=== PATIENT | male | born 1960 | race Caucasian/White ===

== ENCOUNTER 2017-10-28 23:31 | Emergency (ER) | payer BC ==
[2017-10-29] MEDS ORDERED: Lidocaine 2% Viscous Solution 10 ML, Aluminum & Magnesium Hydroxide 20 ML, Donnatal Eli... SSW SCH (00:15)
[2017-10-29 00:53] LABS: CKMB 3.9 ng/mL (0-6.6); Troponin I Less than 0.010 ng/mL (< 0.028)
--- NOTE | 2017-12-02 20:17 | EKG ---
Test Reason : Blood Pressure : / mmHG Vent. Rate : 066 BPM Atrial Rate : 066 BPM P-R Int : 242 ms QRS Dur : 102 ms QT Int : 446 ms P-R-T Axes : 034 023 030 degrees QTc Int : 467 ms Sinus rhythm with 1st degree A-V block Otherwise normal ECG Confirmed by FRANC OLEARY M.D. ([id number]), purchasing expeditor MATHEW [email or web address] ([id number]) on 12/02/2017 8:17:30 PM Referred By: MD MEDRANO Confirmed By:FRANC OLEARY M.D.
== END 2017-10-29 02:00 | disposition home or self-care (01) ==
LOC: ERS 23:31
DX: T18.128A Food in esophagus causing other injury, initial encounter (principal); F17.220 Nicotine dependence, chewing tobacco, uncomplicated
CPT/HCPCS: 36415; 82553; 84484; 93005; 96360

== ENCOUNTER 2024-07-29 12:55 | Emergency (ER) | payer BC | END 2024-07-29 15:26 | disposition home or self-care (01) | LOC: ERS 12:55 | DX: D17.1 Benign lipomatous neoplasm of skin and subcutaneous tissue of trunk (principal); F17.220 Nicotine dependence, chewing tobacco, uncomplicated; Z86.73 Personal history of transient ischemic attack (TIA), and cerebral infarction without residual deficits | CPT/HCPCS: 99282 ==